=== PATIENT | male | born 1955 | race African-American/Black ===

== ENCOUNTER 2016-08-23 07:58 | Inpatient (IN) ==
[2016-08-23] MEDS ORDERED: ONDANSETRON 4 MG/2 ML VIAL IV STA (08:31)
[2016-08-23] MEDS ORDERED: SODIUM CHLORIDE 0.9% 1,000 ML IV STA (08:31)
[2016-08-23] MEDS ORDERED: PANTOPRAZOLE 40 MG VIAL IV STA (08:31)
[2016-08-23 08:45] LABS: Basophils % 0.3 % (0.0-0.8); Eosinophils # 0.3 10*3/uL (0.0-0.87); Eosinophils % 2.9 % (0.00-10.9); Hematocrit 36.7 VOL% (42.0-52.0); Hemoglobin 13.2 GM/DL (14.0-18.0); Immature Granulocytes % 0.5 %; Immature Granulocytes Absolute 0.05 #; Lymphocytes # 2.8 10*3/uL (1.4-4.0); Mean Corpuscular Hemoglobin 32 PG (27-34); Mean Corpuscular Volume 89.3 FL (87-102); Monocytes # 0.6 10*3/uL (0.11-0.8); Monocytes % 6.1 % (1.7-12.7); Neutrophils # 6.2 10*3/uL (1.4-7.4); Neutrophils % 62.2 % (38.7-73.9); Platelet Count 222 10*3/uL (130-400); Red Blood Count 4.11 10*6/uL (3.8-5.5); Red Cell Distribution Width 14.2 % (9.3-17.3)
--- NOTE | 2016-08-23 08:52 | XRay Report ---
Portable chest Date:[08/23/2016] Clinical history: Shortness of breath Comparison: 04/25/2016 Technique: Portable AP sitting chest Findings: The heart is borderline size with uncoiling of the aorta. Atelectasis at the lung bases. Stable mediastinum with degenerative changes. Impression: Limited expiratory chest with atelectasis at the lung bases. PROCEDURE INTERPRETED AT [facility] DEPARTMENT OF RADIOLOGY Final Report Signed by: Dr. Jordyn Webster
[2016-08-23] MEDS ORDERED: PANTOPRAZOLE 40 MG VIAL IV ONE (09:04)
[2016-08-23] MEDS ORDERED: ONDANSETRON 4 MG/2 ML VIAL ONE (09:04)
--- NOTE | 2016-08-23 09:06 | Emergency Department Note ---
Adelso Balderas Gwan, am scribing for, and in the presence of, Julio Martino MD 09:00. Salena Balderas Phillip K, MD, personally performed the services described in this documentation, ascribed by Jaja Darden in my presence, and it is both accurate and complete 905 . Arrival - Arrival Chief Complaint: GI Bleed/Rectal Stated Complaint: SEVERE SICKNESS, SWEATING, SOB ED Nursing Triage Note: PT C/O VOMITING BLACK EMESIS SINCE THIS AM AND HAVING LOOSE BLACK BOWEL MOVEMENTS X2 DAYS. PT IS DIAPHORETIC AND LETHARGIC AT TRIAGE. PT DOES NOT HAVE STEADY GAIT. STATES HAS BEEN SWEATING ALOT. C/O ABD PAIN AND DIZZINESS. Mode of Arrival: Wheelchair Limitations: No Limitations Source: Patient, Old Records Reviewed, RN Notes Reviewed Time Seen by Provider: 08/23/16 08:31 - History of Present Illness HPI Narrative: Pt is a 60 y/o male, with a hx of bleeding ulcer, who presents to the ED with a c/o vomiting and diarrhea with a onset of 2 days. Patient stated that he has has black emesis and that his BM has been loose in consistency and black. His associated sxs have been diaphoresis, abd pain, dizziness and being lethargic. He continued to note that he has been going through episodes of near syncope, that he has vomited twice today and that he his followed by [facility] at [facility]. He confirms ETOH and tobacco use. Patient denies taking any medication for bleeding ulcer. No other problems/complaints reported in ED. Onset (ago): day(s) Consistency: constant Severity: severe Allergies/Adverse Reactions: Allergies Allergy/AdvReac Type Severity Reaction Status Date / Time codeine AdvReac Confusion Verified 08/23/16 08:15 Home Medications: Home Medications Medication Instructions Recorded Confirmed Type Atorvastatin [Lipitor] 10 mg PO DAILY 04/25/16 05/02/16 History Quinapril [Accupril] 20 mg PO DAILY 04/25/16 05/02/16 History Pantoprazole Tab [Protonix Tab] 40 mg PO DAILY #30 tablet 04/27/16 05/04/16 Rx Cyclobenzaprine [Flexeril] 10 mg PO Q12H PRN #30 tablet 08/17/16 Rx Naproxen [Naprosyn Tab] 500 mg PO BID PRN #20 tablet 08/17/16 Rx Review of System - Review of System 12 point system: reviewed and no additional remarkable complaints except as stated - Review of System Constitutional: Present: as per HPI, diaphoresis, weakness, other (dizziness) Cardiovascular: Present: as per HPI, syncope (near syncope) Gastrointestinal: Present: as per HPI, abdominal pain, vomiting, diarrhea Medical,Surgical,& Family Hx - Medical History Cardio: History of: Hypertension No history of: Cardiac Dysrhythmia, [place] Neurology: History of: Cerebrovascular Accident (he states he had a stroke in the past with no residual) No history of: Seizures Endocrine: History of: Dyslipidemia Respiratory: No history of: Obstructive Sleep Apnea Gastrointestinal: History of: GERD No history of: Hepatitis, Liver Problems Hematology: No history of: Blood Transfusion Reaction Other: No history of: Anesthesia Reactions, Cancer - Surgical History Cardiac Surgeries: Patient Denies: Cardiac Catheterization HEENT Surgeries: Patient denies: Eye Surgery, Tonsilectomy & Adenoidectomy Abdominal Surgeries: Surgical HX of: EGD Patient denies: Appendectomy, Cholecystectomy Orthopedic Surgeries: Patient denies;: Orthopedic Surgery - Family History Family History: Reports;: Family Diabetes, Family Hypertension - Social History Smoking Status: Current every day smoker Frequency of Alcohol Use: Frequently Type of Drug Use: None Exam Vital Signs: Vital Signs Temperature 97.0 F L 08/23/16 08:49 Pulse Rate 126 H 08/23/16 08:49 Respiratory Rate 16 08/23/16 08:49 Blood Pressure 86/61 08/23/16 08:49 O2 Sat by Pulse Oximetry 100 08/23/16 08:38 - General General appearance: alert - Head Head exam: Present: atraumatic, normocephalic - Eye Eye exam: Present: normal appearance, PERRL, EOMI - ENT ENT exam: Present: normal oropharynx, mucous membranes moist, TM's normal bilaterally - Neck Neck exam: Present: full ROM, trachea midline. Absent: tenderness, meningismus , lymphadenopathy, thyromegaly - Chest Chest inspection: Present: symmetric chest wall rise. Absent: tenderness - Respiratory Respiratory exam: Present: normal lung sounds bilaterally. Absent: respiratory distress - Cardiovascular Cardiovascular exam: Present: tachycardia - Abdominal Exam Abdominal exam: Present: soft, normal bowel sounds. Absent: distention, tenderness, guarding, rebound - Rectal Exam Rectal exam: Present: heme (+) stool (gross blood) - Extremities Exam Extremities exam: Present: full ROM. Absent: tenderness, pedal edema, calf tenderness - Back Exam Back exam: Present: full ROM. Absent: tenderness - Neurological Exam Neurological exam: Present: alert, oriented X3 - Psychiatric Psychiatric exam: Present: normal affect, normal mood - Skin Skin exam: Present: warm, dry, intact, normal color Results - Labs CBC & BMP: 08/23/16 08:35 Lab Results: I have reviewed the patients labs Labs: Laboratory Tests 08/23/16 08:35 WBC 10.0 RBC 4.11 Hgb 13.2 L Hct 36.7 L Plt Count 222 - EKG EKG results: interpreted by HELEN (sinus tachycardia) - Diagnostic Findings Procedure: Chest x-ray: report reviewed by me (atelectasis) Disposition Clinical Impression: Upper gastrointestinal hemorrhage Case discussed with: patient Disposition: Still a Patient Condition: Guarded Additional Instructions: Admit to the hospitalist
[2016-08-23 09:11] LABS: Albumin 3.4 G/DL (3.4-5.0); Bilirubin,Total 0.7 MG/DL (0.2-1.0); Calcium 8.7 MG/DL (8.5-10.1); Magnesium 2.1 MG/DL (1.8-2.4); Potassium 4.3 MMOL/L (3.5-5.1); Total Protein 6.3 G/DL (6.4-8.3)
[2016-08-23] MEDS ORDERED: ONDANSETRON 4 MG/2 ML VIAL IV PRN (09:52)
--- NOTE | 2016-08-23 10:24 | Hospitalist History & Physical ---
<Selam Zavaleta N - Last Filed: 08/23/16 10:16> Assessment and Plan - Time spent with patient Time spent with patient: Greater than 30 minutes (1) Dark stools Status: Acute Current Visit: Yes (2) Heme + stool Status: Acute Current Visit: Yes (3) Upper gastrointestinal hemorrhage Status: Acute Current Visit: Yes (4) Nausea and vomiting Status: Acute Assessment and plan: Admitted inpatient, pt was hypotensive on arrival, we will admit to ICU for now , NPO for now GI, Dr. Mayer consult IV Protonix serial H/H, routine labs in AM PRN meds hydrate with NS at 100 Current Visit: No History of Present Illness Chief complaint: tarry stools and hematemesis History of present illness: Mr. Orozco is a 60 year old male who presents to the ER today with a 3 day history of dark black tarry stools and dark black vomit. States that he has never had this before. Denies abdominal pain, no tenderness noted on exam. He denies associating symptoms, denies chest pain, shortness of breath, fever, chills, headache, dizziness, dysuria, edema. He denies frequent OTC NSAID use, however on his home medicines is noted that he takes naproxen twice a day. Patient is a poor historian, past medical history of hypertension and dyslipidemia. Denies past surgical history. He dips snuff, does not smoke. States he drinks occasionally but not heavily. Denies drug use. ER physician did state that he told him he had a past medical history of peptic ulcer many years ago. Patient does state that he had seen a GI doctor a long time ago and had some type of scope done, he does not remember what it was or what he was diagnosed with. No family is at bedside for further history. Patient denies recent illness or debility. Home Medications Medication Instructions Recorded Confirmed Type Atorvastatin [Lipitor] 10 mg PO DAILY 04/25/16 08/23/16 History Quinapril [Accupril] 20 mg PO DAILY 04/25/16 08/23/16 History Pantoprazole Tab [Protonix Tab] 40 mg PO DAILY #30 tablet 04/27/16 08/23/16 Rx Cyclobenzaprine [Flexeril] 10 mg PO Q12H PRN #30 tablet 08/17/16 08/23/16 Rx Naproxen [Naprosyn Tab] 500 mg PO BID PRN #20 tablet 08/17/16 08/23/16 Rx Allergies Allergy/AdvReac Type Severity Reaction Status Date / Time codeine AdvReac Confusion Verified 08/23/16 08:15 Medical,Surgical,& Family Hx - Medical History Cardio: History of: Hypertension No history of: Cardiac Dysrhythmia, [place] Neurology: History of: Cerebrovascular Accident (he states he had a stroke in the past with no residual) No history of: Seizures Endocrine: History of: Dyslipidemia Respiratory: No history of: Obstructive Sleep Apnea Gastrointestinal: History of: GERD No history of: Hepatitis, Liver Problems Hematology: No history of: Blood Transfusion Reaction Other: No history of: Anesthesia Reactions, Cancer - Surgical History Cardiac Surgeries: Patient Denies: Cardiac Catheterization HEENT Surgeries: Patient denies: Eye Surgery, Tonsilectomy & Adenoidectomy Abdominal Surgeries: Surgical HX of: EGD Patient denies: Appendectomy, Cholecystectomy Orthopedic Surgeries: Patient denies;: Orthopedic Surgery - Family History Family History: Reports;: Family Diabetes, Family Hypertension - Social History Smoking Status: Current every day smoker Frequency of Alcohol Use: Frequently Type of Drug Use: None 12 point system: reviewed and no additional remarkable complaints except as stated Exam - Constitutional Vitals: Period Temp Pulse Resp BP Sys/Garcia Pulse Ox Last 24 Hr 103 18 132/78 98 General appearance: no acute distress - Head Head exam: Present: normal inspection, normocephalic - Eye Eye exam: Present: EOMI. Absent: scleral icterus Pupils: Present: TRENT, normal accommodation - ENT ENT exam: Present: normal exam, normal oropharynx - Neck Neck exam: Present: normal inspection. Absent: lymphadenopathy - Respiratory Respiratory exam: Present: clear to auscultation bilaterally. Absent: wheezes - Cardiovascular Cardiovascular exam: Present: regular rate and rhythm. Absent: tachycardia - GI/Abdominal GI/Abdominal exam: Present: normal bowel sounds, soft. Absent: tenderness - Extremities Exam Extremities exam: Present: normal inspection, full ROM. Absent: edema - Back Exam Back exam: Present: normal inspection. Absent: muscle spasm - Neurological Exam Neurological exam: Present: alert, oriented X3 - Psychiatric Psychiatric exam: Present: normal affect, normal mood - Skin Skin exam: Present: normal color, warm, dry Results - Labs CBC & BMP: 08/23/16 08:35 08/23/16 08:35 Lab Results: I have reviewed the past 24 hour labs Quality Measures - VTE Contraindication to Pharmacological VTE Prophylaxis: Active Bleeding <Shalom,Damon - Last Filed: 08/23/16 16:52> History of Present Illness History of present illness: Mr. Orozco is a 60 year old male presented to the ER after a few days off noticing dark black stool and possibly coffee ground emesis. Patient was hypotensive in the ER. Patient was on naproxen for the past 5-6 days 500 mg twice a day. Patient denies weight loss or previous history of GI bleed and denies colon cancer in the family. Patient has never had colonoscopy reportedly. Patient has a history of alcohol abuse in the past. Patient denies chest pain or SOB or nausea or fever or chills. Patient feels thirsty and was feeling dizzy and they are. Vital signs reviewed. Patient was given 1 L bolus IV fluid normal saline in ER. General a&ox3, neck No JVD, heart s1s2 + RRR, lung ctab, abd soft NT ND, EXT no edema, skin dry and warm. Assessment and plan was reviewed: - Melena due to acute GIB - Hypotension due to above: improved w IVF - sinus tachycardia: tele, monitor, could be 2/2 above - HTN: hold med - HPL - dvt: SCDs P: 2 IV access, IV PPI, IVF prn, antiemetic, fall risk, type and cross, PTT/PT, H/H c/s GI, monitor VS Exam - Constitutional Vitals: Period Temp Pulse Resp BP Sys/Garcia Pulse Ox Last 24 Hr 97.5 F-98.1 F 103-130 14-21 104-132/65-86 97-100 Results - Labs CBC & BMP: 08/23/16 08:35 08/23/16 08:35
[2016-08-23] MEDS: SODIUM CHLORIDE 0.9% 1,000 ML IV SCH ×3 (10:52→20:05)
--- NOTE | 2016-08-23 12:00 | EKG Report ---
Stationary ECG Study [facility] ER Test Date: 08/23/2016 9:03:56 AM Pat Name: LINDA WASHINGTON Department: Room: 125 Gender: M Bait Maker: MARTHA : 1955 Requested by: Julio Elise Order Number: [id number] Reading MD: GHADA SHARP Intervals [place] Rate: 121 P: 37 VT: 142 QRS: 35 QRSD: 82 T: 43 QT: 301 QTc: 373 Interpretive Statements SINUS TACHYCARDIA at 121 DPM Electronically Signed On 08-23-16 16:20:49 RO[address] ENGINEER by GHADA SHARP [email or web address]
--- NOTE | 2016-08-23 12:47 | Gastrointestinal Consult Note ---
Assessment and Plan (1) GI bleed Status: Acute Assessment and plan: 08/23-2 day history of coffee ground emesis and melena with vague generalized abd pain. Recent intake of Naprosyn daily since Aug 17. Hx of alcohol use. Reported history of PUD in past, no documentation found. Hgb stable at 13. Plan and addendum to follow by Dr Mayer. Current Visit: Yes History of Present Illness Chief complaint: GI bleed History of present illness: Mr. Orozco is a 60 year old male who presented to the hospital with onset of melena and coffee ground emesis. Pt states that he was in his usual state of health until two days ago when he had a sudden onset of nausea and vomiting. He states he vomited up dark black emesis several times and shortly after this began he developed dark runny stools. He denies any consistent abdominal pain associated with this other than some vague waves of pain and cramping in his abdomen throughout. He denies any hematemesis or hematochezia. Denies any recent weight loss, fever or chills. States that he has a history of GERD but is controlled on his Protonix. He states he has had a bleeding ulcer in the past but states this was "a long time" ago and unable to recall the details of this. He was seen in the ER recently and was given Naprosyn for leg pain and states he has been taking this since this time. Denies any other NSAID use. He has a history of alcohol use however he states he is not consistent in his intake. Denies any recent weight loss, fever or chills. He was seen inpatient in April and found to have meat impaction at that time. He returned for repeat EGD and underwent esophageal dilation after the ulcerations had healed. Hgb is stable at 13 at present. BUN/Cr ratio elevated at 33. Home Medications Medication Instructions Recorded Confirmed Type Atorvastatin [Lipitor] 10 mg PO DAILY 04/25/16 08/23/16 History Quinapril [Accupril] 20 mg PO DAILY 04/25/16 08/23/16 History Pantoprazole Tab [Protonix Tab] 40 mg PO DAILY #30 tablet 04/27/16 08/23/16 Rx Cyclobenzaprine [Flexeril] 10 mg PO Q12H PRN #30 tablet 08/17/16 08/23/16 Rx Naproxen [Naprosyn Tab] 500 mg PO BID PRN #20 tablet 08/17/16 08/23/16 Rx Allergies Allergy/AdvReac Type Severity Reaction Status Date / Time codeine AdvReac Confusion Verified 08/23/16 08:15 Medical,Surgical,& Family Hx - Medical History Cardio: History of: Hypertension No history of: Cardiac Dysrhythmia, [place] Neurology: History of: Cerebrovascular Accident (he states he had a stroke in the past with no residual) No history of: Seizures HEENT: No history of: Dental Problems (ALL TEEHT ARE PULLED OUT) Endocrine: History of: Dyslipidemia Respiratory: No history of: Obstructive Sleep Apnea Gastrointestinal: History of: GERD No history of: Hepatitis, Liver Problems Musculoskeletal: History of: Back/Neck Problems (ARTHRITIS ALL OVER) Hematology: No history of: Blood Transfusion Reaction Other: No history of: Anesthesia Reactions, Cancer - Surgical History Cardiac Surgeries: Patient Denies: Cardiac Catheterization Thoracic Surgeries: Patient denies;: Lobectomy Neurologic Surgeries: Patient denies: Neurologic Surgery HEENT Surgeries: Patient denies: Eye Surgery, Tonsilectomy & Adenoidectomy Abdominal Surgeries: Surgical HX of: EGD Patient denies: Appendectomy, Cholecystectomy Reproductive Surgeries: Patient denies;: Genitourinary Surgery Orthopedic Surgeries: Patient denies;: Orthopedic Surgery - Family History Family History: Reports;: Family Diabetes (MOTHER AND BROTHER), Family Hypertension (BROTHER, SISTER) - Social History Smoking Status: Current every day smoker Frequency of Alcohol Use: Frequently Type of Drug Use: None 12 point system: reviewed and no additional remarkable complaints except as stated - Constitutional Constitutional: Present: as per HPI - EENT Eyes: Present: as per HPI Ears: Present: as per HPI Nose, mouth and throat: Present: as per HPI - Cardiovascular Cardiovascular: Present: as per HPI - Respiratory Respiratory: Present: as per HPI - Gastrointestinal Gastrointestinal: Present: as per HPI, abdominal pain, coffee ground emesis, cramping, diarrhea, melena, nausea, vomiting - Genitourinary Genitourinary: Present: as per HPI - Musculoskeletal Musculoskeletal: Present: as per HPI - Neurological Neurological: Present: as per HPI - Psychiatric Psychiatric: Present: as per HPI - Endocrine Endocrine: Present: as per HPI - Hematologic/Lymphatic Hematologic/Lymphatic: Present: as per HPI Exam - Constitutional Vitals: Period Temp Pulse Resp BP Sys/Garcia Pulse Ox Last 24 Hr 97.5 F-98.1 F 103-121 14-20 104-132/65-86 97-100 General appearance: normal weight, no acute distress - Head Head exam: Present: normal inspection, normocephalic - Eye Eye exam: Present: other (lids and conjunctiva unremarakble). Absent: scleral icterus - ENT ENT exam: Present: normal exam, normal oropharynx - Neck Neck exam: Present: normal inspection - Respiratory Respiratory exam: Present: clear to auscultation bilaterally. Absent: rales, rhonchi, wheezes - Cardiovascular Cardiovascular exam: Present: regular rate and rhythm. Absent: diastolic murmur , JVD, systolic murmur - GI/Abdominal GI/Abdominal exam: Present: normal bowel sounds, soft. Absent: ascites, distended, mass, organomegaly, tenderness - Extremities Exam Extremities exam: Present: normal inspection, full ROM - Back Exam Back exam: Present: normal inspection - Neurological Exam Neurological exam: Present: alert, oriented X3 - Psychiatric Psychiatric exam: Present: normal affect, normal mood - Skin Skin exam: Present: normal color, warm, dry Results - Labs CBC & BMP: 08/23/16 08:35 08/23/16 08:35 Lab Results: I have reviewed the past 24 hour labs Quality Measures - VTE Contraindication to Pharmacological VTE Prophylaxis: Active Bleeding
[2016-08-23 18:03] LABS: Hematocrit 27.8 VOL% (42.0-52.0); Hemoglobin 9.8 GM/DL (14.0-18.0)
[2016-08-23] MEDS: PANTOPRAZOLE 40 MG VIAL IV SCH (21:42)
[2016-08-23 23:28] LABS: Hematocrit 25.5 VOL% (42.0-52.0)
[2016-08-24 06:04] LABS: Basophils % 0.1 % (0.0-0.8); Eosinophils # 0.3 10*3/uL (0.0-0.87); Eosinophils % 2.9 % (0.00-10.9); Hemoglobin 8.5 GM/DL (14.0-18.0); Immature Granulocytes % 0.8 %; Immature Granulocytes Absolute 0.08 #; Lymphocytes # 3.2 10*3/uL (1.4-4.0); Lymphocytes % 31.5 % (21.2-54.2); Mean Corpuscular Hemoglobin 31 PG (27-34); Mean Corpuscular Volume 92.3 FL (87-102); Mean Platelet Volume 12.7 FL (9.6-12.0); Monocytes # 0.7 10*3/uL (0.11-0.8); Neutrophils # 5.9 10*3/uL (1.4-7.4); Neutrophils % 57.7 % (38.7-73.9); Platelet Count 173 10*3/uL (130-400); Red Blood Count 2.71 10*6/uL (3.8-5.5); Red Cell Distribution Width 14.5 % (9.3-17.3); White Blood Count 10.1 10*3/uL (4.5-13.71)
[2016-08-24 06:05] LABS: Hematocrit 25.1 VOL% (42.0-52.0); Hemoglobin 8.7 GM/DL (14.0-18.0)
[2016-08-24 06:36] LABS: Albumin 2.7 G/DL (3.4-5.0); Bilirubin,Total 0.7 MG/DL (0.2-1.0); Calcium 7.9 MG/DL (8.5-10.1); Osmolality,Calculated 295.3 MOS/KG (273-304); Potassium 4.3 MMOL/L (3.5-5.1); Total Protein 4.9 G/DL (6.4-8.3)
[2016-08-24] MEDS: PANTOPRAZOLE 40 MG VIAL IV SCH ×2 (09:51→20:49)
[2016-08-24] MEDS: SODIUM CHLORIDE 0.9% 1,000 ML IV SCH (11:48)
[2016-08-24] MEDS: ATORVASTATIN 10 MG TABLET PO SCH (11:50)
[2016-08-24] MEDS ORDERED: PROPOFOL 200 MG/20 ML VIAL IV ONE (13:33)
[2016-08-24] MEDS ORDERED: ONDANSETRON 4 MG/2 ML VIAL ONE (13:33)
[2016-08-24] MEDS ORDERED: PHENYLEPHRINE 1 MG/10 ML SYRINGE IV ONE (13:33)
--- NOTE | 2016-08-24 13:36 | History and Physical Update ---
History and Physical Update - History and Physical H&P was reviewed, the patient examined and there: are no changes in the patients condition since last H&P was completed. - Dictation Physical: refer to H&P completed by admitting physician - Physical Exam Mental Status: alert and oriented Heart: regular rate and rhythm Lung: clear to auscultation Abdomen: within normal limits Vitals: within normal limits
--- NOTE | 2016-08-24 13:40 | Operative Note ---
Date of procedure: 08/24/16 Pre-op diagnosis: Upper GI bleed Procedure: Procedure: Esophagogastroduodenoscopy with epinephrine injection and heater probe coagulation of gastric ulcer visible vessel Brief clinical abstract: Patient is a 60-year-old male admitted with upper GI bleeding. Indication for procedure: Upper GI bleed Endoscopic findings:[After informed consent was obtained, the patient was placed in the left lateral decubitus position. The gastroscope was inserted in the upper esophagus under direct vision with no resistance encountered. Esophageal mucosa appeared normal with squamocolumnar junction sharply demarcated above a small hiatal hernia. The endoscope was advanced in the stomach which was carefully examined including retroflexed view of the cardia and fundus. No blood was noted in the stomach. In the prepyloric antrum anteriorly there was a small approximately 8 mm ulcer with a prominent visible vessel noted. A photo was taken of this. Remainder the stomach appeared normal. The pyloric channel, duodenal bulb, second and third portion of the duodenum were normal. The endoscope was withdrawn back in the stomach. Sclerotherapy needle was used and a total of 3 cc 1: 10,000 concentration epinephrine was injected in and around the visible vessel. Heater probe was then used on a setting of 25 W. 4 separate 5 second applications were administered with good endoscopic results noted. No bleeding was noted. The endoscope was then removed and patient appeared to tolerate the procedure well. Impression: #1 small hiatal hernia #2 gastric ulcer with visible vessel-status post endoscopic therapy Recommendations: Continue PPI therapy and observation with blood product support as needed. visible vessel--------------------------------------> Fafter coagulation-------------------------------------> F F Anesthesia: MAC Surgeon / Physician: Toi Mayer Estimated blood loss: none Specimens: none sent Condition: stable Disposition: post procedure unit Results - Labs CBC & BMP: 08/24/16 04:23 08/24/16 04:23 Discharge Plan - Discharge Medications No Action Quinapril [Accupril] 20 mg PO DAILY Atorvastatin [Lipitor] 10 mg PO DAILY Pantoprazole Tab [Protonix Tab] 40 mg PO DAILY #30 tablet Cyclobenzaprine [Flexeril] 10 mg PO Q12H PRN #30 tablet PRN Reason: Muscle Spasm Naproxen [Naprosyn Tab] 500 mg PO BID PRN #20 tablet PRN Reason: Pain - Follow Up or Referral - Forms/Instructions
--- NOTE | 2016-08-24 13:53 | Anesthesia ---
Anesthesia Post OP - Post Ansesthetic Evaluation Patient seen in post op: Yes Resp: within normal limits CV: within normal limits Mental: within normal limits Temp: within normal limits [id number]: within normal limits Nausea and Vomiting: within normal limits Pain: within normal limits
[2016-08-24] MEDS ORDERED: EPINEPHrine 1 MG/ML VIAL ONE (13:55)
[2016-08-24 16:30] LABS: Hematocrit 23.3 VOL% (42.0-52.0); Hemoglobin 7.9 GM/DL (14.0-18.0)
--- NOTE | 2016-08-24 17:26 | Hospitalist Progress Note ---
Assessment and Plan - Time spent with patient Time spent with patient: Greater than 30 minutes (1) GI bleed Status: Acute Assessment and plan: Scheduled for a scope today. Current Visit: Yes (2) Hypernatremia Status: Acute Assessment and plan: Switch to D5W. Current Visit: No (3) Hyperlipidemia Status: Chronic Assessment and plan: Continue medication. Current Visit: No Hospitalist: Subjective Interval history: Continues to have melenotic stools. Exam - Constitutional Vitals: Period Temp Pulse Resp BP Sys/Garcia Pulse Ox Last 24 Hr 96.6 F-97.7 F 93-129 15-24 92-137/48-80 97-100 General appearance: no acute distress - Head Head exam: Present: normocephalic, atraumatic - Eye Eye exam: Present: EOMI Pupils: Present: TRENT - ENT ENT exam: Present: normal exam - Neck Neck exam: Present: normal inspection - Respiratory Respiratory exam: Present: clear to auscultation bilaterally. Absent: rhonchi, wheezes - Cardiovascular Cardiovascular exam: Present: regular rate and rhythm. Absent: gallop, rubs, systolic murmur - GI/Abdominal GI/Abdominal exam: Present: normal bowel sounds, soft. Absent: distended, firm , guarding, tenderness, rebound - Extremities Exam Extremities exam: Present: normal inspection. Absent: calf tenderness, edema Results - Labs CBC & BMP: 08/24/16 16:12 08/24/16 04:23 Lab Results: I have reviewed the past 24 hour labs Quality Measures - VTE Contraindication to Pharmacological VTE Prophylaxis: Active Bleeding
[2016-08-24] MEDS ORDERED: SODIUM CHLORIDE 0.9% 250 ML IV PRN (17:29)
[2016-08-24] MEDS: DEXTROSE 5% 1,000 ML IV SCH (18:58)
[2016-08-25 02:58] LABS: Hematocrit 26.3 VOL% (42.0-52.0)
[2016-08-25 05:04] LABS: Hematocrit 25.8 VOL% (42.0-52.0); Hemoglobin 8.8 GM/DL (14.0-18.0)
[2016-08-25] MEDS: SODIUM CHLORIDE 0.9% 1,000 ML IV SCH (07:24)
[2016-08-25] MEDS: PANTOPRAZOLE 40 MG VIAL IV SCH ×3 (07:50→21:05)
[2016-08-25] MEDS: DEXTROSE 5% 1,000 ML IV SCH (07:50)
[2016-08-25] MEDS: ATORVASTATIN 10 MG TABLET PO SCH (08:06)
--- NOTE | 2016-08-25 09:04 | Gastrointestinal Progress Note ---
Assessment and Plan (1) GI bleed Status: Acute Assessment and plan: 08/25-EGD findings noted. No further pain, N/V, overt bleeding. Hgb stable at 8. Advance to soft diet. Plan and addendum to follow by DR Mayer. 08/23-2 day history of coffee ground emesis and melena with vague generalized abd pain. Recent intake of Naprosyn daily since Aug 17. Hx of alcohol use. Reported history of PUD in past, no documentation found. Hgb stable at 13. Plan and addendum to follow by Dr Mayer. Current Visit: Yes Gastroenterology - PN: Subj Interval history: CC: GI bleed Pt is seen awake, alert, lying in bed. States he is feeling some better today. Continues to have melena stools but states they are lightening up at this time. Denies any further nausea or vomiting. Denies abdominal pain. Pt EGD noted with gastric ulcer treated with epi and heater probe on yesterday. Hgb is stable at 8.8. He is tolerating his diet well. Abdomen is soft, nontender. ROS: Denies SOB or chest pain Exam (Progress Note) - Constitutional Vitals: Period Temp Pulse Resp BP Sys/Garcia Pulse Ox Last 24 Hr 96.6 F-98.9 F 93-113 16-23 96-137/54-80 97-100 - Other Additional findings: General appearance: normal weight, no acute distress - Head Head exam: Present: normal inspection, normocephalic - Eye Eye exam: Present: other (lids and conjunctiva unremarakble). Absent: scleral icterus - ENT ENT exam: Present: normal exam, normal oropharynx - Neck Neck exam: Present: normal inspection - Respiratory Respiratory exam: Present: clear to auscultation bilaterally. Absent: rales, rhonchi, wheezes - Cardiovascular Cardiovascular exam: Present: regular rate and rhythm. Absent: diastolic murmur , JVD, systolic murmur - GI/Abdominal GI/Abdominal exam: Present: normal bowel sounds, soft. Absent: ascites, distended, mass, organomegaly, tenderness - Extremities Exam Extremities exam: Present: normal inspection, full ROM - Back Exam Back exam: Present: normal inspection - Neurological Exam Neurological exam: Present: alert, oriented X3 - Psychiatric Psychiatric exam: Present: normal affect, normal mood - Skin Skin exam: Present: normal color, warm, dry Results - Labs CBC & BMP: 08/25/16 04:54 08/24/16 04:23 Lab Results: I have reviewed the past 24 hour labs
--- NOTE | 2016-08-25 16:59 | Hospitalist Progress Note ---
Assessment and Plan - Time spent with patient Time spent with patient: Greater than 30 minutes (1) GI bleed Status: Acute Assessment and plan: PUD noted. Continue treatment. Current Visit: Yes (2) Hypernatremia Status: Acute Assessment and plan: Stop D5W. Current Visit: No (3) Hyperlipidemia Status: Chronic Assessment and plan: Continue medication. Current Visit: No Hospitalist: Subjective Interval history: No complaints, no overnight events. Exam - Constitutional Vitals: Period Temp Pulse Resp BP Sys/Garcia Pulse Ox Last 24 Hr 98.0 F-98.9 F 97-107 18-20 105-121/54-72 96-100 General appearance: no acute distress - Head Head exam: Present: normocephalic, atraumatic - Eye Eye exam: Present: EOMI Pupils: Present: TRENT - ENT ENT exam: Present: normal exam - Neck Neck exam: Present: normal inspection - Respiratory Respiratory exam: Present: clear to auscultation bilaterally. Absent: rhonchi, wheezes - Cardiovascular Cardiovascular exam: Present: regular rate and rhythm. Absent: gallop, rubs, systolic murmur - GI/Abdominal GI/Abdominal exam: Present: normal bowel sounds, soft. Absent: distended, firm , guarding, tenderness, rebound - Extremities Exam Extremities exam: Present: normal inspection. Absent: calf tenderness, edema Results - Labs CBC & BMP: 08/25/16 04:54 08/24/16 04:23 Lab Results: I have reviewed the past 24 hour labs Quality Measures - VTE Contraindication to Pharmacological VTE Prophylaxis: Active Bleeding
[2016-08-26 04:52] LABS: Basophils % 0.2 % (0.0-0.8); Eosinophils # 0.4 10*3/uL (0.0-0.87); Eosinophils % 4.1 % (0.00-10.9); Hematocrit 25.3 VOL% (42.0-52.0); Hemoglobin 8.7 GM/DL (14.0-18.0); Immature Granulocytes % 0.3 %; Immature Granulocytes Absolute 0.03 #; Lymphocytes # 2.5 10*3/uL (1.4-4.0); Lymphocytes % 26.2 % (21.2-54.2); Mean Corpuscular HGB Conc 34.4 GM/DL (32-36); Mean Corpuscular Hemoglobin 31 PG (27-34); Mean Corpuscular Volume 89.7 FL (87-102); Mean Platelet Volume 11.7 FL (9.6-12.0); Monocytes # 0.7 10*3/uL (0.11-0.8); Neutrophils % 62.2 % (38.7-73.9); Platelet Count 149 10*3/uL (130-400); Red Blood Count 2.82 10*6/uL (3.8-5.5); Red Cell Distribution Width 14.3 % (9.3-17.3); White Blood Count 9.6 10*3/uL (4.5-13.71)
[2016-08-26 05:28] LABS: Calcium 8.3 MG/DL (8.5-10.1); Potassium 3.5 MMOL/L (3.5-5.1)
[2016-08-26] MEDS: ATORVASTATIN 10 MG TABLET PO SCH ×2 (07:48→08:03)
[2016-08-26] MEDS: PANTOPRAZOLE 40 MG VIAL IV SCH ×2 (07:48→08:03)
--- NOTE | 2016-08-26 11:36 | Discharge Summary ---
Hospital Course - Hospital Course Hospital Course: Peptic ulcer disease with GI bleed: Mr Orozco was admitted with complaints of melena. He was started on a PPI and had an EGD which revealed gastric ulcer with visible vessel that required endoscopic therapy. Patient had no recurrence of GI bleeding and hemoglobin and hematocrit were stable. By discharge he had an maximum benefit of hospitalization. - Time spent with patient Time with patient DS: Greater than 30 minutes Diagnosis - Discharge Diagnosis (1) GI bleed Status: Acute (2) Hypernatremia Status: Acute (3) Hyperlipidemia Status: Chronic Discharge Plan - Discharge Data Disposition: Disch To Home/Self Care Condition at Discharge: Stable Discharge Diet: advance to your usual diet Activity: resume usual activities as tolerated - Discharge Medications New Acetaminophen Tab [Tylenol Tab] 500 mg PO Q4H PRN #120 tablet PRN Reason: Pain Pantoprazole Tab [Protonix Tab] 40 mg PO BID #60 tablet Continue Quinapril [Accupril] 20 mg PO DAILY Atorvastatin [Lipitor] 10 mg PO DAILY Pantoprazole Tab [Protonix Tab] 40 mg PO DAILY #30 tablet Cyclobenzaprine [Flexeril] 10 mg PO Q12H PRN #30 tablet PRN Reason: Muscle Spasm Discontinued Naproxen [Naprosyn Tab] 500 mg PO BID PRN #20 tablet PRN Reason: Pain - Follow Up or Referral - Forms/Instructions Exam - Constitutional Vitals: Period Temp Pulse Resp BP Sys/Garcia Pulse Ox Last 24 Hr 98.3 F-99.1 F 94-107 16-19 113-127/59-72 94-100 General appearance: normal weight, no acute distress - Head Head exam: Present: normal inspection, normocephalic, atraumatic - Eye Eye exam: Present: EOMI Pupils: Present: TRENT - ENT ENT exam: Present: normal exam - Neck Neck exam: Present: normal inspection - Respiratory Respiratory exam: Present: clear to auscultation bilaterally - Cardiovascular Cardiovascular exam: Present: regular rate and rhythm - GI/Abdominal GI/Abdominal exam: Present: normal bowel sounds - Extremities Exam Extremities exam: Present: normal inspection Discharge Results Labs on day of discharge: Labs from last 24 hours 08/26/16 08/26/16 04:08 04:08 WBC 9.6 RBC 2.82 L Hgb 8.7 L Hct 25.3 L MCV 89.7 MCH 31 MCHC 34.4 RDW 14.3 Plt Count 149 MPV 11.7 Neut % (Auto) 62.2 Lymph % (Auto) 26.2 [place]ill % (Auto) 7.0 Eos % (Auto) 4.1 Baso % (Auto) 0.2 Neut # (Auto) 6.0 Lymph # (Auto) 2.5 Traill # (Auto) 0.7 Eos # (Auto) 0.4 Baso # (Auto) 0.0 Immature Gran % 0.3 Nucleated RBC % 0.0 Immature Gran # 0.03 Nucleated RBCs # 0.00 Sodium 143 Potassium 3.5 Chloride 107 Carbon Dioxide 25 Anion Gap 14.5 BUN 3 L Creatinine 0.50 L GFR Calculation 162 BUN/Creatinine Ratio 6.00 Glucose 89 Calculated Osmolality 280.0 Calcium 8.3 L DS: Provider Date of admission: 08/23/16 09:10 Primary care physician: . No PCP Attending physician on admission: Damon Rausch Consults: 08/23/16 09:52 Consult to Physician [CONS] Routine Comment: tarry stool and tarry emesis Consulting Provider: Toi Mayer Consulting Provider Notified: Yes Person Notified: Shea Mayer's office Date Notified: 08/23/16 Time Notified: 10:42 08/23/16 10:33 Consult to Pharmacy [CONS] Routine Reason for Pharmacy Consult: Adjust Meds Renal Funct 08/25/16 09:32 Consult to Physical Therapy [CONS] Routine Reason for Physical Therapy: Evaluate and Treat Discharging clinician: Rozina Hickey MD Expected date of discharge: 08/26/16
[2016-08-26 12:17] VITALS: BP 121/71
== END 2016-08-26 14:00 | disposition home or self-care (01) | DRG 378 ==
LOC: N.ED 07:58 → N.EDINP 09:10 → N.CC 10:25 → N.5E 08-24 18:12
PROVIDERS: ADMIT Student in an Organized Health Care Education/Training Program; ATTEND Student in an Organized Health Care Education/Training Program